=== PATIENT | male | born 1970 | race Caucasian/White ===

== ENCOUNTER 2020-09-15 12:41 | Emergency (ER) | payer MEDICAID ==
[~2020-09-15] VITALS: Ht 168.9 cm; Wt 86.6 kg
[2020-09-15 12:47] VITALS: BP 143/94
[2020-09-15] MEDS ORDERED: KETOROLAC 30 MG/ML VIAL IM ONE (14:45)
--- NOTE | 2020-09-15 15:00 | NUR ---
50 Y/O COMES FROM HOME PRESENTD TO ED C/C PUNCTURE WOUND TO RIGHT FOREARM. 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 C/O PAIN 8/10 SHARP, CONTINUOUS, NON RADIATING. PUNCTURE INSERTION SITE NOTED, NO EXIT SITE, NOT ACTIVELY BLEEDING, SWELLING NOTED, WARM TO TOUCH, SENSATION INTACT BELOW AND ABOVE PUNCTURE SITE. PMH: HTN NKDA
--- NOTE | 2020-09-15 15:04 | NUR ---
PT HAS BEEN TAKING TO XRAY VIA .
[2020-09-15] MEDS ORDERED: LIDOCAINE 2% 1000 MG/50 ML VIAL INJ ONE (15:30)
--- NOTE | 2020-09-15 17:18 | NUR ---
Patient discharged with v/s stable. Written and verbal after care instructions given and explained. Patient verbalized understanding. Ambulatory with steady gait. All questions addressed prior to discharge. Advised to follow up with PMD.
[2020-09-15 17:22] VITALS: BP 143/94
== END 2020-09-15 17:18 | disposition home or self-care (01) ==
LOC: MED 12:41
DX: S50.851A Superficial foreign body of right forearm, initial encounter (principal); I10 Essential (primary) hypertension; W45.8XXA Other foreign body or object entering through skin, initial encounter; Y93.89 Activity, other specified; Y92.89 Other specified places as the place of occurrence of the external cause; Y99.8 Other external cause status
CPT/HCPCS: 73090; 90471; 90715; 96372; 99284; J1885; J2001

== ENCOUNTER 2020-09-23 07:03 | Emergency (ER) | payer MEDICAID ==
[~2020-09-23] VITALS: Ht 167.6 cm; Wt 87.1 kg
[2020-09-23 07:12] VITALS: BP 159/94
--- NOTE | 2020-09-23 07:17 | NUR ---
PATIENT AMBULATED TO BED 2.
--- NOTE | 2020-09-23 07:28 | NUR ---
PATIENT PRESENTS TO ED FOR SUTURE REMOVAL RIGHT F/A . SKIN IS W&D HOB ELEVATED; BEDRAILS UP X2; BED DOWN. ER MD MADE AWARE OF PT STATUS.
--- NOTE | 2020-09-23 07:28 | NUR ---
RECEIVED IN BED 2 FOR SUTURE REMOVAL RIGHT F/A. SUTURE LINE DRY AND INTACT. NAD NOTED
--- NOTE | 2020-09-23 07:40 | NUR ---
DR. TAM AT BEDSIDE FOR EXAM
[2020-09-23] MEDS ORDERED: BACITRACIN OINT 500 UNITS/GM PKT TP ONE (07:55)
[2020-09-23 08:10] VITALS: BP 159/94
--- NOTE | 2020-09-23 08:10 | NUR ---
Patient discharged with v/s stable. Written and verbal after care instructions given and explained. Patient alert, oriented and verbalized understanding of instructions. Ambulatory with steady gait. All questions addressed prior to discharge. ID band removed. Patient advised to follow up with PMD. Rx of BACITRACIN OINTMENT given. Patient educated on indication of medication including possible reaction and side effects. Opportunity to ask questions provided and answered.
== END 2020-09-23 08:10 | disposition home or self-care (01) ==
LOC: MED 07:03
DX: S51.811D Laceration without foreign body of right forearm, subsequent encounter (principal); I10 Essential (primary) hypertension; X58.XXXD Exposure to other specified factors, subsequent encounter
CPT/HCPCS: 99282